=== PATIENT | female | born 1975 | race Caucasian/White ===

== ENCOUNTER 2018-03-05 08:03 | Day surgery (SDC) | payer BC ==
[~2018-03-05] VITALS: Ht 167.6 cm; Wt 84.6 kg
[~2018-03-05 08:03] MED LIST: ADVIL PM1 TABLET PO; DASETTA1 EACH PO; XANAX0.25 MG PO
[2018-03-05 08:27] VITALS: BP 161/89
[2018-03-05] MEDS ORDERED: NORCO 5/3251 TABLET PO (10:46)
[2018-03-05 11:35] VITALS: BP 122/69
[2018-03-05 12:35] VITALS: BP 114/69
[2018-03-05 13:50] VITALS: BP 117/71
== END 2018-03-05 13:55 | disposition home or self-care (01) ==
LOC: SDC 08:03
PROC: 0FT44ZZ Resection of Gallbladder, Percutaneous Endoscopic Approach (ICD-10-PCS; principal; 2018-03-05)
DX: K80.10 Calculus of gallbladder with chronic cholecystitis without obstruction (principal); K66.0 Peritoneal adhesions (postprocedural) (postinfection); E78.5 Hyperlipidemia, unspecified; F41.9 Anxiety disorder, unspecified
CPT/HCPCS: 88304; J0690; J1100; J1170; J1885; J2001; J2250; J2405; J2710; J2795; J3010; J3475; J7643